=== PATIENT | female | born 1965 | race Caucasian/White ===

== ENCOUNTER 2016-10-19 13:27 | Day surgery (SDC) | payer BC, OTHER ==
[~2016-10-19] VITALS: Ht 154.9 cm; Wt 92.8 kg
[2016-10-19 15:31] VITALS: Ht 154.9 cm; Wt 92.8 kg
[2016-10-19] MEDS ORDERED: SIMV20TA2 PO (15:37)
[2016-10-19] MEDS ORDERED: LISI40TA9 PO (15:37)
[2016-10-19] MEDS ORDERED: TRHC5025 PO (15:37)
[2016-10-19] MEDS ORDERED: LEVO175T6 PO (15:37)
[2016-10-19 16:03] VITALS: BP 125/77; PULSE 77; RESP 14
[2016-10-19] MEDS ORDERED: FENTAnyl 50 MCG/ML VIAL ONE (16:57)
[2016-10-19 17:41] VITALS: BP 171/90; PULSE 88; RESP 15
[2016-10-19] MEDS ORDERED: MIDAZOLAM 1 MG/ML 2 ML INJ ONE ×5 (17:42)
--- NOTE | 2016-10-19 22:14 | GILP ---
DATE OF PROCEDURE: 10/19/2016 DATE: 10/19/2016 NAME OF PROCEDURE: Esophagogastroduodenoscopy with biopsies. SURGEON: Jigar Solano MD. PREMEDICATION: Versed 6 mg, fentanyl 75 mcg administered IV push by Dr. Solano. INSTRUMENT USED: Olympus panendoscope. TECHNIQUE: After informed consent, with the patient/relatives understanding the procedure, its indic ations, potential risks, and complications, including but not limited to: allergic reaction, bleedin g, perforation or infection, and after all pertinent questions were answered to the patient's satisf action, the patient/relatives signed witnessed informed consent. Following this, premedication was administered slowly IV push under careful cardiovascular and respi ratory monitoring with pulse oximetry, automatic blood pressure and employment clerk. Once the sedative effect was achieved the patient was place in the left lateral decubitus, the panen doscope was introduced and advanced under visual control. Careful examination of the upper gastrointestinal tract, both on insertion as well as withdrawal of the instrument disclosed the following findings: ESOPHAGUS: The distal esophagus shows significant erythema, edema, and superficial erosion of the m ucosa. STOMACH: Upon entrance to the stomach, air was insufflated, the gastric de la torre distended normally. There is erythema and edema of the mucosa of a moderate degree. Biopsies were obtained to rule out H. pylori infection. PYLORUS: The pylorus appears patent and within normal limits, with no evidence of gastric outlet ob struction. DUODENUM: The duodenal mucosa was carefully examined in the duodenal bulb as well as the second por tion of the duodenum and appears unremarkable with no evidence of duodenitis, ulcer, or neoplasm. The instrument was then withdrawn, the patient tolerated the procedure well and was transfer out of the endoscopy suite awake, and in good condition to continue recovery under observation IMPRESSION: 1. Distal esophagitis. 2. Gastritis, rule out Helicobacter pylori infection, biopsies obtained. PLAN: The patient will be treated with PPIs. Pathology will be reviewed as soon as available. Fur ther recommendation will depend on the patient's clinical course as well as review of biopsies. Dictated By: JIGAR SOLANO MS/NTS Conf#: [id number] DID#: [id number] CC: JIGAR SOLANO;*EndCC*
--- NOTE | 2016-10-20 06:00 | GILP ---
DATE OF PROCEDURE: 10/19/2016 PROCEDURE: Colonoscopy to cecum. BRIEF HISTORY AND INDICATIONS: The patient is being evaluated for colorectal cancer screening. SURGEON: Ezequiel Solano MD INSTRUMENT USED: Olympus colonoscope. PREPARATION: Adequate. PREMEDICATION: Versed at 10 mg, fentanyl 75 mcg administered IV push by TECHNIQUE: After informed consent, with the patient/relatives understanding the procedure, its robbie cations potential risks and complications, including but not limited to: allergic reaction, bleeding , perforation, infection, missed lesions and after all pertinent questions were answered to the pratik ent's satisfaction, the patient/relatives signed the witnessed informed consent. Following this, premedication was administered slowly IV push by under careful cardiovascular and re spiratory monitoring with pulse oximetry, automatic blood pressure and river tester. Once the sedativ e effect was achieved, the patient was placed in the left lateral decubitus position, digital rectal examination was performed. The colonoscope was then introduced and advanced under visual control th roughout all segments of the colon including: the rectum, sigmoid, descending colon, splenic flexure , transverse colon, hepatic flexure, ascending colon and finally reaching the cecum which was clearl y identified by transillumination, finger indentation and the ileocecal valve. Careful examination o f the mucosa of the lower gastrointestinal tract both on insertion as well as withdrawal of the inst rument disclosed the following findings: Rectal Examination: Small external hemorrhoids are noted. Colonic Mucosa: The colonic mucosa is essentially unremarkable throughout. The ileocecal valve was clearly identified and appears unremarkable. The instrument was withdrawn reexamining the mucosa i n detail. No additional abnormalities are noted with the exception of moderate sized internal hemor rhoids. IMPRESSION: 1. Normal colonic mucosa to cecum. 2. Moderate sized internal hemorrhoids. PLAN: The patient will be followed up as an outpatient. Annual Hemoccult stool testing is recommen ded and screening colonoscopy in 10 years is recommended. Dictated By: EZEQUIEL SOLANO MS/RENEE Conf#: [id number] DID#: [id number]
== END 2016-10-19 17:28 | disposition home or self-care (01) ==
LOC: GIL 13:27
PROVIDERS: ATTEND Internal Medicine Gastroenterology
DX: Z12.11 Encounter for screening for malignant neoplasm of colon (principal); K22.4 Dyskinesia of esophagus; K64.4 Residual hemorrhoidal skin tags; K64.8 Other hemorrhoids
CPT/HCPCS: 43239; 45378; 88305; J2250; J3010; Z7610; 88312